=== PATIENT | female | born 1945 | race Caucasian/White ===

== ENCOUNTER → 2019-12-19 10:42 | Outpatient (BNVA) | payer MEDICARE, OTHER, SELFPAY | PROVIDERS: Family Provider Nurse Practitioner; PCP Nurse Practitioner; Visit Provider Nurse Practitioner | DX: K21.0 Gastro-esophageal reflux disease with esophagitis (principal) | CPT/HCPCS: 80053; 85025 ==

== ENCOUNTER → 2019-12-26 09:42 | Outpatient (BNVA) | payer MEDICARE, OTHER, SELFPAY | PROVIDERS: Family Provider Nurse Practitioner; PCP Nurse Practitioner; Visit Provider Otolaryngology | DX: R13.10 Dysphagia, unspecified (principal); R04.2 Hemoptysis; K22.719 Barrett's esophagus with dysplasia, unspecified; K21.0 Gastro-esophageal reflux disease with esophagitis | CPT/HCPCS: 99204; 99214 ==

== ENCOUNTER 2020-03-11 07:43 | Outpatient (CLI) | payer MEDICARE, OTHER, SELFPAY ==
--- NOTE | 2020-03-11 08:07 | FL_ITS ---
WS: [id number] ESOPHAGRAM TECHNIQUE: Double contrast examination was performed with thin and thick barium. Upright and QURESHI imag es were obtained. CLINICAL INFORMATION: OTHER DYSPHAGIA, HEMOPTYSIS COMPARISON: None. FINDINGS: Swallowing: Normal. Esophagus: Moderate esophageal dysmotility with delayed emptying. Evidence of Mckeon's esophagus in the distal esophagus. Patulous distal esophagus with recurrent or residual hernia proximal to the Nis sen fundoplication with dilatation. Fundoplication appears grossly intact. Gastroesophageal reflux: Extensive reflux in the upright and supine positions with delayed emptying. Reflux to the hypopharynx. Fluoroscopy time: 3.0 minutes. FL/FL barium swallow [id number] IMPRESSION: 1. Prior reported history of Orquidea fundoplication. 2. Moderate esophageal dysmotility with delayed emptying and patulous distal e sophagus with small residual or recurrent hernia proximal to the fundoplication . 3. Fundoplication appears grossly intact. 4. Extensive reflux in the upright and supine position to the hypopharynx. 5. Evidence of Mckeon's esophagus in the distal esophagus compatible with nestor or history.
--- NOTE | 2020-03-11 08:07 | CT_ITS ---
WS: [id number] CT NECK TECHNIQUE: Contrast-enhanced CT of the neck with coronal and sagittal reformatted images. CLINICAL INFORMATION: OTHER DYSPHAGIA COMPARISON: None. DLP: 2205.[address] scans at [facility] use at least one of these dose optimization techniques: automat ed exposure control; mA and/or kV adjustment per patient size (includes targeted exams where dose is matched to clinical indication); or iterative reconstruction. FINDINGS: Parotid glands are normal. Submandibular glands are normal. Tongue base is normal in appearance. Norm al posterior nasopharynx. Mastoid air cells well aerated. Mild mucosal thickening in the paranasal si nuses. Small amount of fluid in the right posterior ethmoid air cells. Mild polypoid mucosal thickeni ng in the maxillary sinuses. Mastoid air cells are well aerated. No cervical lymphadenopathy. Thyroid gland is normal. No evidence of supraglottic or glottic mass.Mod erate spondylitic changes cervical spine. CT/CT neck w con* [id number] IMPRESSION: 1. No evidence of supraglottic or glottic mass. Normal posterior nasopharynx. 2. Normal salivary glands. 3. No cervical lymphadenopathy. 4. Mild mucosal thickening in the paranasal sinuses described above. Mastoid a ir cells well aerated. 5. Mild spondylitic changes cervical spine.
--- NOTE | 2020-03-11 08:07 | CT_ITS ---
WS: [id number] CT CHEST TECHNIQUE: Contrast enhanced CT of the chest with coronal and sagittal reformatted images. CLINICAL INFORMATION: HEMOPTYSIS COMPARISON: None. DLP: 554.[address] scans at [facility] use at least one of these dose optimization techniques: automat ed exposure control; mA and/or kV adjustment per patient size (includes targeted exams where dose is matched to clinical indication); or iterative reconstruction. FINDINGS: Lungs are well aerated. No acute pulmonary infiltrates. No focal pneumonia. No pleural fluid. Normal caliber thoracic aorta. Mild aortic calcification. Thyroid gland is normal. No mediastinal or hilar lymphadenopathy. Postoperative changes Orquidea fundoplication with repair of the previously desc ribed esophageal hiatal hernia seen on the prior CT abdomen pelvis August 11, 2016. Mild narrowing a t the GE junction. Suggestion of small residual/recurrent hiatal hernia. See concurrent barium swallo w. Fluid and secretions in the distal esophagus. Mild diffuse fatty infiltration of the liver. Small left hepatic cyst. Portal vein and splenic vein a re normal. Normal spleen. Cholecystectomy clips. Adrenal glands are normal. CT/CT chest w con* [id number] IMPRESSION: 1. Postoperative changes Orquidea fundoplication are new since 2015 with repair of the esophageal hiatal hernia. Suggestion of small residual/recurrent hiatal hernia above the GE junction with mild narrowing at the GE junction. See concur rent barium swallow 2. Secretions are seen in the distal esophagus with mild distal esophageal thi ckening. 3. Lungs are well aerated. No acute pulmonary infiltrates. 4. No mediastinal or hilar lymphadenopathy. 5. Normal endobronchial tree. 6. Prior cholecystectomy.
[2020-03-11 08:36] LABS: Blood Urea Nitrogen 11 mg/dL (8-23)
[2020-03-11] MEDS: iohexol 300 mg/mL 100 mL Btl IV ×2 (08:59→09:01)
== END 2020-03-11 07:44 | disposition home or self-care (01) ==
LOC: RADWPI 07:50
PROVIDERS: Family Provider Nurse Practitioner; PCP Nurse Practitioner; Visit Provider Specialist
DX: R04.2 Hemoptysis (principal); R13.19 Other dysphagia
CPT/HCPCS: 70491; 71260; 74220; 82565; 84520; Q9967

== ENCOUNTER 2020-04-24 08:11 | Day surgery (SDC) | payer MEDICARE, OTHER, SELFPAY ==
[2020-04-22 13:33] VITALS: BMI 29.2
[2020-04-24] MEDS: sodium chloride 0.9% 1,000 ML 30 ML IV (08:42)
--- NOTE | 2020-04-24 08:52 | ANES.PREANE2 ---
Pre-Anesthetic Assessment Pre-Anesthetic Assessment: Height/Weight: Height 1.6 m Weight 74.843 kg Preop Diagnosis: Difficulty in swallowing Proposed Procedure: Operation Date: 04/24/20 09:30 Proposed Procedures p EGD 02294/K21.0(Not Applicable) - Oskar Doyle MD Familial anesthetic complications: None Was Beta Jeniffer taken within 24 hours: N/A Last intake: Intake Last Liquid Date 04/24/20 Last Liquid Time 22:00 Last Solid Date 04/23/20 Last Solid Time 20:00 Social: Social History: No alcohol and No tobacco Exam: Pre-Anes Outpt Exam: alert, oriented x 3, clear to auscultation bilaterally and regular rate & rhythm Airway: Cervical ROM: WNL MP: 1 Dentition: Chipped Pulmonary: Pulmonary: None reported CV/HEM: CV/HEM: None reported : : None reported Hepatic: Hepatic: None reported GI: GI: GERD Metabolic: Metabolic: Morbid obesity Musc/skel: Musc/skel: Lower Back Pain Neuropsych: Neuropsych: None reported Anesthetic Plan: ASA status: 2 Anesthesia: MAC Risk of > 500 ml blood loss (7ml/kg in children): No Meds/Allergies Current Medications: Current Medications Generic Name Dose Route Start Last Admin Trade Name Freq PRN Reason Stop Dose Admin Sodium Chloride 1,000 mls @ 30 ml s/hr 04/24/20 08:45 04/24/20 08:42 Sodium Chloride 0.9% IV 04/25/20 08:44 30 mls/hr .Q24H SUSANNA Administration PFSH Anesthesia PFSH: Medical History Barretts esophagus Hemoptysis History of gastric ulcer History of GI bleed Iron deficiency Mixed hyperlipidemia Reflux esophagitis Situational anxiety Vitamin D insufficiency Surgical History History of cholecystectomy (~2001) History of colonoscopy History of esophagogastroduodenoscopy (EGD) History of hernia repair (~06/29/19) History of partial hysterectomy History of surgery on arm Left arm Status post laparoscopic Orquidea fundoplication (~06/2019) Family History Mother Dementia Social History Smoking and tobacco status: never smoked Second hand smoke exposure: No Smoking risk assessment/counseling performed?: No Alcohol intake: unknown Desire information about alcohol rehabilitation?: No Counseling given: No Desire information about substance/drug rehabilitation?: No Counseling given: No Caregiver/support person: No Lives independently: Yes Household members: spouse Housing: House Marital status: Number of children: 5 service: No Current occupational status: retired History of recent travel: No Current gender identity: Female Data Anesthesia Cardiac Studies: No Data to Display
--- NOTE | 2020-04-24 10:01 | W.PM.OPSUD ---
Surgery/Procedure H&P Update DATE OF PROCEDURE: April 24, 2020 DATE H&P PERFORMED: 04/11/20 H&P UPDATE INFORMATION: I have reviewed H&P completed within last 30 days, I have examined patient prior to procedure and No changes to prior documentation PREOP DIAGNOSIS: Difficulty in swallowing PRIMARY INDICATION FOR PROCEDURE: The same PLANNED PROCEDURE: Operation Date: 04/24/20 09:30 Proposed Procedures p EGD 13875/K21.0(Not Applicable) - Oskar Doyle MD
[2020-04-24 10:13] VITALS: BP 153/81; PULSE 86; RESP 18; TEMP 36.3; O2SAT 99
[2020-04-24 10:27] VITALS: BP 121/65; PULSE 77; RESP 18; O2SAT 99
[2020-04-25 13:31] LABS: H. Pylori / CLO Test Negative
== END 2020-04-24 10:38 | disposition home or self-care (01) ==
PROVIDERS: PCP Nurse Practitioner; Visit Provider Surgery
PROC: 0DJ08ZZ Inspection of Upper Intestinal Tract, Via Natural or Artificial Opening Endoscopic (ICD-10-PCS; CPT 43235; principal; 2020-04-24 09:30)
DX: R13.10 Dysphagia, unspecified (principal); K21.0 Gastro-esophageal reflux disease with esophagitis; K44.9 Diaphragmatic hernia without obstruction or gangrene; K29.60 Other gastritis without bleeding; E66.01 Morbid (severe) obesity due to excess calories; Z68.29 Body mass index [BMI] 29.0-29.9, adult; E78.2 Mixed hyperlipidemia
CPT/HCPCS: 12345; 43239; 87077; J2704

== ENCOUNTER → 2020-06-25 08:30 | Outpatient (BNVA) | payer MEDICARE, OTHER, SELFPAY | PROVIDERS: PCP Nurse Practitioner; Visit Provider Nurse Practitioner | DX: E61.1 Iron deficiency (principal); E78.2 Mixed hyperlipidemia; K21.0 Gastro-esophageal reflux disease with esophagitis; F41.1 Generalized anxiety disorder; K22.719 Barrett's esophagus with dysplasia, unspecified; E55.9 Vitamin D deficiency, unspecified; R82.90 Unspecified abnormal findings in urine | CPT/HCPCS: 80053; 80061; 81003; 82306; 82607; 84443; 85025; 87077; 87086; 87184; 87186 ==

== ENCOUNTER → 2020-07-10 12:22 | Outpatient (BNVA) | payer MEDICARE, OTHER, SELFPAY | PROVIDERS: PCP Nurse Practitioner; Visit Provider Nurse Practitioner Family | DX: Z11.59 Encounter for screening for other viral diseases (principal) | CPT/HCPCS: 87635 ==

== ENCOUNTER → 2020-07-25 08:33 | Outpatient (BNVA) | payer MEDICARE, OTHER, SELFPAY | PROVIDERS: PCP Nurse Practitioner; Visit Provider Nurse Practitioner | DX: N39.0 Urinary tract infection, site not specified (principal); B96.20 Unspecified Escherichia coli [E. coli] as the cause of diseases classified elsewhere | CPT/HCPCS: 81000 ==

== ENCOUNTER → 2021-01-02 09:02 | Outpatient (BNVA) | payer MEDICARE, OTHER, SELFPAY | PROVIDERS: PCP Nurse Practitioner; Visit Provider Nurse Practitioner | DX: E78.2 Mixed hyperlipidemia (principal); E61.1 Iron deficiency | CPT/HCPCS: 80053; 80061; 82607; 83540; 85025 ==

== ENCOUNTER → 2021-05-14 13:34 | Outpatient (BNVA) | payer MEDICARE, OTHER, SELFPAY | PROVIDERS: PCP Nurse Practitioner; Visit Provider Nurse Practitioner | DX: E53.8 Deficiency of other specified B group vitamins (principal); M79.18 Myalgia, other site | CPT/HCPCS: 80048; 82607 ==

== ENCOUNTER → 2021-07-30 10:20 | Outpatient (BNVA) | payer MEDICARE, OTHER, SELFPAY | PROVIDERS: PCP Nurse Practitioner; Visit Provider Nurse Practitioner | DX: E61.1 Iron deficiency (principal); E53.8 Deficiency of other specified B group vitamins | CPT/HCPCS: 82607; 85025 ==

== ENCOUNTER → 2021-08-07 15:44 | Outpatient (BNVA) | payer MEDICARE, OTHER, SELFPAY | PROVIDERS: PCP Nurse Practitioner; Visit Provider Surgery | DX: R19.7 Diarrhea, unspecified (principal) | CPT/HCPCS: 83630; 87493; 87506 ==

== ENCOUNTER 2021-08-14 10:07 | Outpatient (CLI) | payer MEDICARE, OTHER, SELFPAY ==
--- NOTE | 2021-08-14 11:30 | CT_ITS ---
WS: [id number] CT ABDOMEN PELVIS TECHNIQUE: Contrast-enhanced CT of the abdomen and pelvis with coronal and sagittal reformatted image s. CLINICAL INFORMATION: R10.9 - Unspecified abdominal pain COMPARISON: CT chest 08/11 2016 DLP: 748.[address] scans at [facility] use at least one of these dose optimization techniques: automated e xposure control; mA and/or kV adjustment per patient size (includes targeted exams where dose is matc hed to clinical indication); or iterative reconstruction. FINDINGS: Prior postoperative changes cholecystectomy and hysterectomy. Diffuse fatty infiltration the liver. N ormal portal vein and splenic vein. Moderate esophageal hiatal hernia with surgical clips at the [facility] with Orquidea fundoplication. Normal pancreatic parenchymal enhancement.. This is significantly improved since 2015. Normal spleen. Noncalcified nodule left lower lobe is new from previous CT abdomen pelvis [address] March 0, measuring 11 mm. Adjacent linear subsegmental atelectasis. This lesion is indeterminant and neopla sm not excluded. Recommend further evaluation with PET/CT. Adrenal glands are normal. Normal renal parenchymal enhancement. No hydronephrosis. Normal caliber ab dominal aorta. Aortic calcification. Extensive sigmoid diverticulosis. No evidence of acute diverticu litis. No evidence of high-grade small or large bowel obstruction. Normal appendix in the right lower quadrant. Tiny fat-containing right pericentral umbilical hernia. No abdominal lymphadenopathy. No adenopathy in the pelvis. No inguinal lymphadenopathy. Slight retrolisthesis L2 on L3. CT/CT abdomen pelvis w con* [id number] IMPRESSION: 1. New noncalcified nodule left lower lobe measuring 11 mm. This is nonspecifi c and neoplasm not excluded. Recommend further evaluation with PET/CT. 2. Diffuse fatty infiltration of the liver. 3. Prior Orquidea fundoplication with small residual esophageal hiatal hernia ab ove the fundoplication. This is unchanged since the prior chest CT March 11, 2020 4. Extensive sigmoid diverticulosis. No evidence of acute diverticulitis. 5. Prior cholecystectomy and hysterectomy. 6. No other significant changes
[2021-08-14 11:40] LABS: Blood Urea Nitrogen 9 mg/dL (8-23)
[2021-08-14] MEDS: iohexol 300 mg/mL 100 mL Btl IV (11:49)
== END 2021-08-14 10:08 | disposition home or self-care (01) ==
PROVIDERS: PCP Nurse Practitioner; Visit Provider Surgery
DX: R10.9 Unspecified abdominal pain (principal); K22.719 Barrett's esophagus with dysplasia, unspecified; Z90.49 Acquired absence of other specified parts of digestive tract; Z90.710 Acquired absence of both cervix and uterus; K57.30 Diverticulosis of large intestine without perforation or abscess without bleeding; K76.0 Fatty (change of) liver, not elsewhere classified; R91.1 Solitary pulmonary nodule
CPT/HCPCS: 74177; 82565; 84520; Q9967

== ENCOUNTER → 2021-08-25 15:28 | Outpatient (BNVA) | payer MEDICARE, OTHER, SELFPAY | PROVIDERS: PCP Nurse Practitioner; Visit Provider Nurse Practitioner | DX: R91.1 Solitary pulmonary nodule (principal) | CPT/HCPCS: 80053 ==

== ENCOUNTER → 2021-12-29 16:48 | Outpatient (BNVA) | payer MEDICARE, OTHER, SELFPAY | PROVIDERS: PCP Nurse Practitioner; Visit Provider Nurse Practitioner | DX: E61.1 Iron deficiency (principal); E78.2 Mixed hyperlipidemia; E53.8 Deficiency of other specified B group vitamins; K22.719 Barrett's esophagus with dysplasia, unspecified; M79.18 Myalgia, other site; F41.1 Generalized anxiety disorder; K21.00 Gastro-esophageal reflux disease with esophagitis, without bleeding | CPT/HCPCS: 80053; 80061; 82607; 83540; 85025 ==

== ENCOUNTER → 2022-07-10 11:10 | Outpatient (BNVA) | payer MEDICARE, OTHER, SELFPAY | PROVIDERS: PCP Nurse Practitioner; Visit Provider Nurse Practitioner | DX: K22.719 Barrett's esophagus with dysplasia, unspecified (principal); F41.1 Generalized anxiety disorder; M79.18 Myalgia, other site; E78.2 Mixed hyperlipidemia; E61.1 Iron deficiency; E55.9 Vitamin D deficiency, unspecified; E53.8 Deficiency of other specified B group vitamins; Z20.822 Contact with and (suspected) exposure to COVID-19 | CPT/HCPCS: 80053; 80061; 82306; 82607; 83540; 85025; 87426 ==

== ENCOUNTER → 2022-12-02 09:17 | Outpatient (BNVA) | payer MEDICARE, OTHER, SELFPAY | PROVIDERS: PCP Nurse Practitioner; Visit Provider Nurse Practitioner | DX: E61.1 Iron deficiency (principal) | CPT/HCPCS: 80053; 85025 ==

== ENCOUNTER → 2023-04-12 10:02 | Outpatient (BNVA) | payer MEDICARE, OTHER, SELFPAY | PROVIDERS: PCP Nurse Practitioner; Visit Provider Nurse Practitioner | DX: E53.8 Deficiency of other specified B group vitamins (principal); E78.2 Mixed hyperlipidemia; E61.1 Iron deficiency; E55.9 Vitamin D deficiency, unspecified | CPT/HCPCS: 80053; 80061; 82306; 82607; 83540 ==

== ENCOUNTER → 2023-09-22 12:14 | Outpatient (BNVA) | payer MEDICARE, OTHER, SELFPAY | PROVIDERS: PCP Nurse Practitioner; Visit Provider Nurse Practitioner | DX: E78.2 Mixed hyperlipidemia (principal); K21.00 Gastro-esophageal reflux disease with esophagitis, without bleeding | CPT/HCPCS: 80053; 80061; 85025 ==

== ENCOUNTER → 2023-12-15 11:48 | Outpatient (BNVA) | payer MEDICARE, OTHER, SELFPAY | PROVIDERS: PCP Nurse Practitioner; Visit Provider Nurse Practitioner | DX: E78.2 Mixed hyperlipidemia (principal); E61.1 Iron deficiency; E53.8 Deficiency of other specified B group vitamins; E55.9 Vitamin D deficiency, unspecified; K22.719 Barrett's esophagus with dysplasia, unspecified; F41.1 Generalized anxiety disorder; R63.4 Abnormal weight loss; R91.1 Solitary pulmonary nodule; B96.20 Unspecified Escherichia coli [E. coli] as the cause of diseases classified elsewhere; N39.0 Urinary tract infection, site not specified | CPT/HCPCS: 80053; 80061; 81000; 82306; 82607; 83550; 84443; 85025; 87077; 87086; 87184 ==

== ENCOUNTER 2023-12-30 15:12 | Outpatient (CLI) | payer MEDICARE, OTHER, SELFPAY ==
[2023-12-30] MEDS: iohexol 350 mg/mL 500 mL Btl (per mL) PO (16:01)
--- NOTE | 2023-12-30 16:30 | CT_ITS ---
WS: [id number] CT CHEST, ABDOMEN AND PELVIS NONCONTRAST HISTORY: R91.1 - Solitary pulmonary nodule TECHNIQUE: Contiguous 5 mm axial imaging performed through the chest, abdomen and pelvis without IV c ontrast, oral contrast has been provided. Coronal and sagittal reformats chest. Coronal and sagittal reformats through the abdomen and pelvis. All CT scans at [facility] use at least one of thes e dose optimization techniques: automated exposure control; mA and/or kV adjustment per patient size (includes targeted exams where dose is matched to clinical indication); or iterative reconstruction. CONTRAST: None DLP: 590.15 mGy.cm COMPARISON: CT abdomen and pelvis 08/14/2021, chest CT 03/11/2020, PET/CT 09/06/[address]: Reidentified is a 10 mm noncalcified nodule in the LEFT lower lobe which was negative on PE T/CT from 09/06/2021. There has been no increase in size. New area of groundglass attenuation involvin g approximately 40% of the RIGHT lower lobe. Area of groundglass attenuation measures 9.5 x 5.2 cm. N o pleural or pericardial effusions. Mild atherosclerosis aorta. Normal size pulmonary artery. Moderat e hiatal hernia. Postsurgical changes of fundoplication are noted at the GE junction. No mediastinal or hilar or axillary adenopathy on this unenhanced exam. Abdomen CT: Normal size liver and spleen. Prior cholecystectomy. Negative pancreas and RIGHT adrenal gland. Mild hyperplasia LEFT adrenal gland. No renal obstruction. Atherosclerotic plaque within the a jose. No aneurysm. Moderate calcification in the splenic artery. Small calcified distal splenic arter y aneurysm measures 8 mm. Stomach is nondistended. No wall thickening. Towards the duodenal C-loop there is mild wall thickenin g of the duodenum which may be due to peristalsis. There is no adjacent inflammation no obstruction. No small bowel obstruction. The appendix is normal. There are numerous diverticula throughout the col on. No acute diverticulitis. Pelvic CT: Prior hysterectomy. No free fluid or adenopathy in the pelvis. Nondistended urinary bladde r. Marked increase in lumbar lordosis. L2 retrolisthesis by 5 mm. No osseous destruction is identified. IMPRESSION: 1. Stable noncalcified PET/CT negative, 10 mm nodule in the LEFT lower lobe. No increase in size sin ce 08/14/2021. 2. New irregular groundglass attenuation in the RIGHT lower lobe. Nonspecific finding. This can be s een with pneumonitis, hemorrhage and also low-grade neoplasm. Recommend follow-up chest CT in 3 month s after treatment for possible pneumonitis. 3. No mediastinal or hilar adenopathy. 4. Prior cholecystectomy and hysterectomy. 5. Brewer diverticulosis. No evidence for acute diverticulitis. 6. No ascites and no adenopathy in the abdomen or pelvis. 7. Very mild submucosal thickening of the duodenum. This is probably due to peristalsis. There is no obstruction. This can be reevaluated on the follow-up CT in 3 months.
== END 2023-12-30 15:13 | disposition home or self-care (01) ==
LOC: RAD 15:12
PROVIDERS: PCP Nurse Practitioner; Visit Provider Nurse Practitioner
DX: R91.1 Solitary pulmonary nodule (principal); E61.1 Iron deficiency; R63.4 Abnormal weight loss
CPT/HCPCS: 71250; 74176; Q9967

== ENCOUNTER 2024-01-28 09:56 | Outpatient (CLI) | payer MEDICARE, OTHER, SELFPAY ==
--- NOTE | 2024-01-28 10:30 | CT_ITS ---
WS: [id number] CT CHEST AND ABDOMEN NONCONTRAST CONTRAST HISTORY: R91.1 - Solitary pulmonary nodule TECHNIQUE: Axial imaging is performed through the chest and abdomen without contrast. Sagittal and co lily reformats. All CT scans at [facility] use at least one of these dose optimization techn iques: automated exposure control; mA and/or kV adjustment per patient size (includes targeted exams where dose is matched to clinical indication); or iterative reconstruction. CONTRAST: None DLP: 361.88 mGy COMPARISON: 12/30/2023, 08/14/2021 and PET/CT 09/06/[address]: Previously described area of groundglass attenuation and pneumonitis in the RIGHT lower lobe has reso lved. Well-circumscribed nodule in the LEFT lower lobe measures 10 mm and is stable. This was also ne gative on a prior PET/CT. No new pulmonary mass or nodule. No pneumonia. Mild hyperexpansion. No pericardial or pleural effusions. No adenopathy identified on this unenhanced exam. Mild atherosclerosis aorta. Moderate sized hiatal h ernia. Abdomen CT: Prior cholecystectomy. No GI tract obstruction. There is continued very mild thickening of the duoden um but no interval change or progression. No adjacent inflammation. There is extensive diverticular d isease through the visualized transverse colon but no acute diverticulitis. Nonenhanced imaging throu gh the visceral organs demonstrates no interval change. Splenic artery and aortic calcifications. No ascites or adenopathy. IMPRESSION: 1. Complete interval resolution of the groundglass attenuation in the RIGHT lower lobe. No new mass or pneumonia. 2. Chronic emphysema. 3. Long-term stability 10 mm nodule LEFT lower lobe. 4. Mild persistent thickening of the duodenum but no mass identified and no obstruction. 5. Advanced diverticular disease through the visualized transverse colon. No acute diverticulitis. 6. Prior cholecystectomy.
== END 2024-01-28 09:57 | disposition home or self-care (01) ==
LOC: RAD 09:56
PROVIDERS: PCP Nurse Practitioner; Visit Provider Nurse Practitioner
DX: R91.1 Solitary pulmonary nodule (principal)
CPT/HCPCS: 71250; 74150

== ENCOUNTER → 2024-03-01 11:38 | Outpatient (BNVA) | payer MEDICARE, OTHER, SELFPAY | PROVIDERS: PCP Nurse Practitioner; Visit Provider Nurse Practitioner | DX: E78.2 Mixed hyperlipidemia; E61.1 Iron deficiency | CPT/HCPCS: 80053; 80061; 83540; 85025 ==

== ENCOUNTER → 2024-07-20 11:29 | Outpatient (BNVA) | payer MEDICARE, OTHER, SELFPAY | PROVIDERS: PCP Nurse Practitioner; Visit Provider Nurse Practitioner | DX: E78.2 Mixed hyperlipidemia | CPT/HCPCS: 80053; 80061; 85025 ==

== ENCOUNTER → 2025-02-14 09:14 | Outpatient (BNVA) | payer MEDICARE, OTHER, SELFPAY | PROVIDERS: PCP Nurse Practitioner; Visit Provider Nurse Practitioner | DX: R30.0 Dysuria (principal); E78.2 Mixed hyperlipidemia; E53.8 Deficiency of other specified B group vitamins | CPT/HCPCS: 80053; 80061; 81003; 82607; 84443; 85025; 87086 ==

== ENCOUNTER 2025-03-24 22:48 | Emergency (ER) | payer MEDICARE, OTHER, SELFPAY ==
[2025-03-24 22:55] VITALS: BP 146/81; PULSE 63; RESP 18; TEMP 36.6; O2SAT 97
[2025-03-24 23:55] VITALS: PULSE 62; RESP 16; O2SAT 97
--- NOTE | 2025-03-25 01:04 | CTR_ITS ---
PROCEDURE INFORMATION: Exam: CT Head Without Contrast Exam date and time: 03/25/2025 1:33 AM Age: 79 years old Clinical indication: Injury or trauma; Blunt trauma (contusions or hematomas) and laceration; Without residual foreign body; Forehead; Fall from standing hitting RT side of head on ground. Laceration to RT frontal. ; Additional info: Fall hit head TECHNIQUE: Imaging protocol: Computed tomography of the head without contrast. Radiation optimization: All CT scans at this facility use at least one of these dose optimization techniques: automated exposure control; mA and/or kV adjustment per patient size (includes targeted exams where dose is matched to clinical indication); or iterative reconstruction. COMPARISON: CT neck w con* [id number] 03/11/2020 8:43 AM RADIATION DOSE METRICS: Total DLP (mGy-cm): 923.94 FINDINGS: Brain: Subcortical and periventricular white matter changes consistent with small-vessel ischemic disease in the appropriate clinical setting. Small-vessel ischemic disease. No acute intracranial abnormality. Cerebral ventricles: No ventriculomegaly. Paranasal sinuses: Visualized sinuses are unremarkable. No fluid levels. Mastoid air cells: Visualized mastoid air cells are well aerated. Bones: Soft tissue defect overlying the right frontal skull with no underlying skull fracture. Soft tissues: Unremarkable. CT/CT head wo con* [id number] IMPRESSION: 1. No acute intracranial abnormality. 2. Small-vessel ischemic disease. 3. Soft tissue defect overlying the right frontal skull with no underlying skull fracture.
--- NOTE | 2025-03-25 01:04 | CTR_ITS ---
PROCEDURE INFORMATION: Exam: CT Cervical Spine Without Contrast Exam date and time: 03/25/2025 1:35 AM Age: 79 years old Clinical indication: Injury or trauma; Blunt trauma; Fall from standing hitting RT side of head on ground. Laceration to RT frontal. TECHNIQUE: Imaging protocol: Computed tomography of the cervical spine without contrast. Radiation optimization: All CT scans at this facility use at least one of these dose optimization techniques: automated exposure control; mA and/or kV adjustment per patient size (includes targeted exams where dose is matched to clinical indication); or iterative reconstruction. COMPARISON: CT neck w con* [id number] 03/11/2020 8:43 AM RADIATION DOSE METRICS: Total DLP (mGy-cm): 273.28 FINDINGS: Bones: No acute cervical spine fracture or listhesis. Paranasal sinuses: Mucous retention cysts in the left maxillary sinus and mild mucosal thickening in the bilateral maxillary sinuses. Lungs: Apical capping bilaterally. Soft tissues: Unremarkable. CT/CT cervical spin wo con* [id number] IMPRESSION: No acute cervical spine fracture or listhesis.
[2025-03-25 02:34] VITALS: BP 136/70; PULSE 67; RESP 16; O2SAT 98
--- NOTE | 2025-03-25 03:29 | ED_ITS ---
HPI - Wound/Laceration General: Chief Complaint: Wound/Laceration Stated Complaint: Fell hit R side head L Knee Time Seen by Provider: 03/25/25 01:10 History of Present Illness: The patient, an older female, presents to the emergency department after falling and sustaining a head injury requiring stitches. She reports that she kind of fell down but is unsure of the exact circumstances, stating she thinks she tripped. The patient denies loss of consciousness following the fall. The patient reports experiencing a little bit of headache once in a while, but describes it as not significant. She denies any current nausea or vomiting. When questioned about her vision and balance, the patient does not report any difficulties. She also denies shortness of breath, chest pain, abdominal pain, or any urinary or bowel issues. The patient's fall resulted in a little hole in her head that requires stitches. She does not report any other injuries or symptoms related to the fall. The patient mentions that her has a broken hip, and she was trying to help him when the fall occurred, suggesting a possible contributing factor to her accident. Related Data Home Medications ?Medication ?Instructions ?Recorded ?Confirmed multivitamin (Daily Multi-Vitamin 1 tab PO QAM 12/29/2 2 03/08/25 tablet) Previous Rx's ?Medication ?Instructions ?Recorded buspirone 5 mg tablet 5 mg PO TID PRN anxiety #30 tabs 10/05/24 pantoprazole 20 mg tablet,delayed 20 mg PO DAILY #90 t abs 03/08/25 release (Protonix) pravastatin 20 mg tablet 20 mg PO DAILY #90 tabs 06/25 sertraline 50 mg tablet 50 mg PO DAILY #90 tabs 06/25 tizanidine 2 mg tablet 2 mg PO .at bedtime PRN musc le 03/08/25 spasticity #30 tabs Allergies Allergy/AdvReac Type Severity Reaction Status Date / Time No Known Allergies Allergy Verified 03/24/25 22:59 Review of Systems General: Reports: 10 or more systems reviewed and unremarkable except in HPI and below [facility] PFSH: Medical History GRACIELA (generalized anxiety disorder) History of gastric ulcer Barretts esophagus Hemoptysis Iron deficiency Mixed hyperlipidemia Reflux esophagitis Vitamin D insufficiency History of GI bleed Surgical History History of esophagogastroduodenoscopy (EGD) History of colonoscopy Status post laparoscopic Orquidea fundoplication (~06/2019) History of surgery on arm Left arm History of cholecystectomy (~2001) History of partial hysterectomy History of hernia repair (~06/29/19) Family History Mother Dementia Social History Smoking and tobacco/nicotine status: never used tobacco/nicotine Second hand smoke exposure: No Alcohol intake: unknown Substance/Drug Use: never Caregiver/support person: No Lives independently: Yes Household members: spouse Housing: House Marital status: Number of children: 5 service: No Current occupational status: retired Do you think of yourself as: Straight/Heterosexual Current gender identity: Female Physical Exam Const: COMMON NORMALS: no acute distress, patient oriented x3, healthy appearing, alert and well nourished HENMT: COMMON NORMALS: normocephalic HEAD & SCALP: normocephalic Eye: COMMON NORMALS: EOMs intact bilaterally Neck/C-Spine: COMMON NORMALS: full ROM and supple Resp: COMMON NORMALS: normal respiratory effort, No retractions and clear to auscultation bilaterally AUSCULTATION: clear to auscultation bilaterally Cardio: COMMON NORMALS: regular rate, regular rhythm, No gallops present (Cardio) and No murmurs present (Cardio) RATE: regular rate RHYTHM: regular rhythm GI: COMMON NORMALS: Soft to palpation and non-tender PALPATION: Yes Soft to palpation Extremity: GENERAL: Yes normal exam except as noted Neuro: COMMON NORMALS: patient oriented x3 SENSORIUM/ORIENTATION: Yes alert CRANIAL NERVES: Yes CN normal except as noted SENSORY EXAM: Yes extremities and Trunk sensory exam abnormal MOTOR EXAM: 5/5 motor strength present throughout Skin: LESIONS: lesion noted (3.5cm forehead laceration) Procedures Laceration Laceration 1: Site: face Side (If applicable): right Size (cm): 3.5 Description: linear Depth: simple, single layer Local Anesthetic: lidocaine 1% and with epi Amount of anesthesia used (mL): 4 Pre-repair: wound explored Skin layer closed with: nylon Size (cm): 4-0 Number of sutures: 44 Technique: simple, interrupted Course Vital Signs: Vital signs: Vital Signs Temperature 97.9 F 03/24/25 22:55 Pulse Rate 67 03/25/25 02:34 Respiratory Rate 16 03/25/25 02:34 Blood Pressure 136/70 03/25/25 02:34 Pulse Oximetry 98 03/25/25 02:34 Oxygen Delivery Me thod Room Air 03/24/25 23:55 MDM - Wound/Laceration Medical Decision Making 79-year-old female presents after she tripped and fell and then hit her head on a rock. She had a laceration on her forehead that was repaired without complication. CT of her C-spine and head were negative for acute processes. Counseled the patient to have her sutures out in 1 week and on signs of infection. Return precautions were discussed and the patient was discharged home in good condition. Lab Data Radiology Impressions Cervical Spine CT 03/25/25 01:04 IMPRESSION: No acute cervical spine fracture or listhesis. Head CT 03/25/25 01:04 IMPRESSION: 1. No acute intracranial abnormality. 2. Small-vessel ischemic disease. 3. Soft tissue defect overlying the right frontal skull with no underlying skull fracture. All radiology interpretation(s) finalized by discharge Discharge Plan Discharge Patient Disposition: Home Clinical Impression: Laceration Fall Qualifiers: Encounter type: initial encounter Qualified Code(s): W19.XXXA - Unspecified fall, initial encounter Condition: Stable Prescriptions: No Action multivitamin [Daily Multi-Vitamin] Tablet 1 tab PO QAM buspirone 5 mg tablet 5 mg PO TID PRN (Reason: anxiety) Qty: 30 0RF tizanidine 2 mg tablet 2 mg PO .at bedtime PRN (Reason: muscle spasticity) Qty: 30 5RF sertraline 50 mg tablet 50 mg PO DAILY Qty: 90 1RF pravastatin 20 mg tablet 20 mg PO DAILY Qty: 90 1RF pantoprazole [Protonix] 20 mg tablet,delayed release (DR/EC) 20 mg PO DAILY Qty: 90 1RF Discharge Orders: Discharge ED (Routine); Ordered 03/25/25 Ordered By: Eleazar Law Referrals: Wellington Herrera, [facility] [Primary Care Provider, [facility]] Discharge Diet: Advance as tolerated Discharge Activity: Resume usual activity Patient Instructions: Laceration (ED), Opioid Safety, Pain Management Activity Restrictions/Additional Instructions: Keep the laceration clean and dry. Have the sutures removed in 7 days. Observe the wound for signs of infection including redness, drainage, pain not controlled by Tylenol or ibuprofen. Return to the emergency department with any new or worsening symptoms. Print Language: Guamanian Coding Level of Care Code ED T[employer] Balancer for Prasanna Worley
== END 2025-03-25 02:45 | disposition home or self-care (01) ==
PROVIDERS: Emergency Provider General Practice; PCP Nurse Practitioner
DX: S01.81XA Laceration without foreign body of other part of head, initial encounter (principal); W01.0XXA Fall on same level from slipping, tripping and stumbling without subsequent striking against object, initial encounter
CPT/HCPCS: 12013; 70450; 72125; 99284

== ENCOUNTER → 2025-08-30 11:58 | Outpatient (BNVA) | payer MEDICARE, OTHER, SELFPAY | PROVIDERS: PCP Nurse Practitioner; Visit Provider Nurse Practitioner | DX: F41.1 Generalized anxiety disorder (principal); E78.2 Mixed hyperlipidemia; E53.8 Deficiency of other specified B group vitamins; E55.9 Vitamin D deficiency, unspecified | CPT/HCPCS: 80053; 80061; 82306; 82607; 84425; 84443; 85025 ==

== ENCOUNTER → 2025-09-18 11:14 | Outpatient (BNVA) | payer MEDICARE, OTHER, SELFPAY | PROVIDERS: PCP Nurse Practitioner; Visit Provider Nurse Practitioner | DX: K22.719 Barrett's esophagus with dysplasia, unspecified (principal) | CPT/HCPCS: 85025 ==